=== PATIENT | female | born 2000 | race Caucasian/White ===

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

== ENCOUNTER 2023-04-25 15:23 | Emergency (ER) | payer MEDICAID ==
[2023-04-25 15:35] VITALS: TEMP 97; O2SAT 98
--- NOTE | 2023-04-25 15:36 | ERPHSYRPT ---
- History of Present Illness Time Seen by Provider: 04/25/23 15:36 Source: patient, family Exam Limitations: no limitations Physician History: This is a 22-year-old white female patient who is 8 weeks and has had a migraine headache for 2 days. She stated to me that she took both Tylenol and ibuprofen without benefit. She has not had any vomiting but feels a little nauseous. She has not had any diarrhea. She has no complaints of abdominal pain. She has had no abnormal vaginal discharge. She is concerned about being dehydrated. She did not have any trauma to her head. Timing/Duration: day(s) (2) Head Pain Location: global Severity of Pain-Max: mild (To moderate) Severity of Pain-Current: mild (To moderate) Recent Head Trauma: no recent headache/trauma Modifying Factors: Improves With: noise Associated Symptoms: nausea/vomiting (Nausea but no vomiting), No fever/chills, No loss of consciousness, No neck pain, No sensitive to light, No vision changes, No visual disturbance Previous symptoms: no prior history, no recent treatment Allergies/Adverse Reactions: No Known Drug Allergies Allergy (Verified 04/25/23 15:32) Home Medications: Pnv No.95/Ferrous Fum/Folic AC [ Caplet] 1 each PO DAILY 04/25/23 [History] Hx Tetanus, Diphtheria Vaccination/Date Given: Yes Hx Influenza Vaccination/Date Given: No Hx Pneumococcal Vaccination/Date Given: No Travel Risk - International Travel Have you traveled outside of the country in past 3 weeks: No - Coronavirus Screening Are you exhibiting any of the following symptoms?: No Close contact with a COVID-19 positive Pt in past 14-21 Days: No - Vaccine Status Have you recieved a Covid-19 vaccination: Yes [employer]: [employer] - Vaccination Dates Date of 2cond Vaccination (if applicable): feb 2021 - Review of Systems Constitutional: No Symptoms Eyes: No Symptoms Ears, Nose, & Throat: No Symptoms Respiratory: No Symptoms Cardiac: No Symptoms Abdominal/Gastrointestinal: No Symptoms Genitourinary Symptoms: No Symptoms Musculoskeletal: No Symptoms Skin: No Symptoms Neurological: Headache Psychological: No Symptoms Endocrine: No Symptoms Hematologic/Lymphatic: No Symptoms Immunological/Allergic: No Symptoms All Other Systems: Reviewed and Negative - Past Medical History Pertinent Past Medical History: No Neurological History: No Pertinent History ENT History: No Pertinent History Cardiac History: No Pertinent History Respiratory History: No Pertinent History Endocrine Medical History: No Pertinent History Musculoskeletal History: Other GI Medical History: No Pertinent History History: No Pertinent History Psycho-Social History: No Pertinent History Female Reproductive Disorders: No Pertinent History Other Medical History: Had outpatient surgery to remove some lead from foot after stepping on a pencil - Past Surgical History Past Surgical History: Yes Neuro Surgical History: No Pertinent History Cardiac: No Pertinent History Respiratory: No Pertinent History Gastrointestinal: Appendectomy Genitourinary: No Pertinent History Musculoskeletal: Other Female Surgical History: No Pertinent History - Social History Smoking Status: Never smoker Exposure to second hand smoke: Yes Drug Use: none Patient Lives Alone: No - Nursing Vital Signs Nursing Vital Signs: Initial Vital Signs Temperature 97.0 F 04/25/23 15:34 Pulse Rate 79 04/25/23 15:34 Respiratory Rate 16 04/25/23 15:34 Blood Pressure 117/59 04/25/23 15:34 O2 Sat by Pulse Oximetry 98 04/25/23 15:34 Pain Scale Pain Intensity 4 - Physical Exam General Appearance: no apparent distress, alert, anxiety Eye Exam: PERRL/EOMI, eyes nml inspection Ears, Nose, Throat Exam: normal ENT inspection, moist mucous membranes Neck Exam: normal inspection, non-tender, supple, full range of motion Respiratory Exam: normal breath sounds, lungs clear, airway intact, No chest tenderness, No respiratory distress Cardiovascular Exam: regular rate/rhythm, normal heart sounds, normal peripheral pulses Gastrointestinal/Abdominal Exam: soft, normal bowel sounds, No tenderness Back Exam: normal inspection, normal range of motion, No CVA tenderness, No vertebral tenderness Extremity Exam: normal inspection, normal range of motion, pelvis stable Mental Status Exam: alert, oriented x 3, cooperative hearing examiner Exam: normal hearing, normal speech, PERRL, tongue midline Coordination/Gait Exam: normal finger to nose, normal gait, normal cerebellar function Motor/Sensory Exam: no motor deficit, no sensory deficit Skin Exam: normal color, warm, dry Lymphatic Exam: No adenopathy SpO2 Interpretation: normal SpO2: 98 O2 Delivery: Room Air - Course Nursing assessment & vital signs reviewed: Yes Ordered Tests: Active Orders 24 hr Category Date Time Status IV Insertion STAT Care 04/25/23 15:52 Active Pulse Oximetry (ED) STAT Care 04/25/23 15:52 Active BMP Stat Lab 04/25/23 16:10 Completed CBC W DIFF Stat Lab 04/25/23 16:10 Completed CULTURE,URINE Stat Lab 04/25/23 16:04 Received UA W/RFX UR CULTURE Stat Lab 04/25/23 16:04 Completed Medication Summary Discontinued Medications Generic Name Dose Route Start Last Admin Trade Name Philippq PRN Reason Stop Dose Admin Diphenhydramine HCl 50 mg 04/25/23 15:52 04/25/23 16:09 Diphenhydramine Hcl 50 Mg/Ml Vial IV 04/25/23 15:53 50 mg STAT ONE Administration Diphenhydramine HCl Confirm 04/25/23 16:06 Diphenhydramine Hcl 50 Mg/Ml Vial Administered 04/25/23 16:07 Dose 50 mg .ROUTE .STK-MED ONE Sodium Chloride 500 mls @ 500 mls/hr 04/25/23 15:54 04/25/23 16:09 Sodium Chloride 0.9% 500 Ml IV 04/25/23 16:53 500 mls/hr .Q1H ONE Administration Sodium Chloride Confirm 04/25/23 16:06 Sodium Chloride 0.9% 500 Ml Administered 04/25/23 16:07 Dose 500 mls @ ud IV .STK-MED ONE Prochlorperazine Edisylate 5 mg 04/25/23 15:52 04/25/23 16:09 Prochlorperazine Edisylate 10 Mg/2 Ml Vial IV 04/25/23 15:53 10 mg STAT ONE Administration Prochlorperazine Edisylate Confirm 04/25/23 16:06 Prochlorperazine Edisylate 10 Mg/2 Ml Vial Administered 04/25/23 16:07 Dose 10 mg .ROUTE .STK-MED ONE Lab/Rad Data: Laboratory Result Diagrams 04/25/23 16:10 04/25/23 16:10 Laboratory Results 04/25/23 04/25/23 04/25/23 Range/Units 16:10 16:10 16:04 WBC 12.7 H (4.0-10.5) x10^3/uL RBC 4.30 (4.1-5.4) x10^6/uL Hgb 12.8 (12.0-16.0) g/dL Hct 37.7 (35-47) % MCV 87.7 (78-100) fL MCH 29.8 (26-32) pg MCHC 34.0 (32-36) g/dL RDW 11.9 (11.5-14.0) % Plt Count 293 (150-450) x10^3/uL MPV 9.4 (7.5-11.0) fL Gran % 69.8 H (36.0-66.0) % Immature Gran % (Auto) 0.3 (0.00-0.4) % Nucleat RBC Rel Count 0.0 (0.00-0.1) % Eos # (Auto) 0.10 (0-0.5) x10^3/uL Immature Gran # (Auto) 0.04 H (0.00-0.03) x10^3u/L Absolute Lymphs (auto) 2.99 (1.0-4.6) x10^3/uL Absolute Monos (auto) 0.64 (0.0-1.3) x10^3/uL Absolute Nucleated RBC 0.00 (0.00-0.01) x10^3u/L Lymphocytes % 23.5 L (24.0-44.0) % Monocytes % 5.0 (0.0-12.0) % Eosinophils % 0.8 (0.00-5.0) % Basophils % 0.6 (0.0-0.4) % Absolute Granulocytes 8.88 H (1.4-6.9) x10^3/uL Basophils # 0.07 (0-0.4) x10^3/uL Sodium 136 L (137-145) mmol/L Potassium 3.7 (3.5-5.1) mmol/L Chloride 103 (98-107) mmol/L Carbon Dioxide 20 L (22-30) mmol/L Anion Gap 16.2 H (5-15) MEQ/L BUN 9 (7-17) mg/dL Creatinine 0.65 (0.52-1.04) mg/dL Estimated GFR 129.2 ML/MIN Glucose 76 (74-106) mg/dL Calcium 8.9 (8.4-10.2) mg/dL Urine Color Yellow (Yellow) Urine Appearance Cloudy A (Clear) Urine pH 5.0 (4.6-8.0) Ur Specific [place] 1.025 (1.005-1.030) Urine Protein Negative (Negative) Urine Glucose (UA) Negative (Negative) mg/dL Urine Ketones 15 A (Negative) Urine Blood Negative (Negative) Urine Nitrite Negative (Negative) Urine Bilirubin Negative (Negative) Urine Urobilinogen 0.2 (0.2) mg/dL Ur Leukocyte Esterase Trace A (Negative) U Hyaline Cast (Auto) 3-5 A (0-2) /LPF Urine Microscopic RBC 0-2 (0-5) /HPF Urine Microscopic WBC 6-10 A (0-5) /HPF Ur Epithelial Cells Moderate A (None Seen) /HPF Urine Bacteria Few A (None Seen) /HPF Urine Culture Reflexed YES (NO) - Progress Progress: improved, re-examined Air Movement: good Progress Note: 04/25/23 16:38 This patient's medical issue is 1 of moderate complexity. Level complex in the work-up performed is based on review of the patient's past medical history, review of the patient's drug allergy list, review the patient's medication list, review of the history of present illness and physical findings on examination. This patient work-up includes placement of intravenous line, infusion of normal saline solution, infusion of intravenous prochlorperazine 2.5 mg and intravenous of Benadryl 50 mg. In addition we are checking a urinalysis, CBC and BMP. I reviewed the medications and there risks and side effects with the patient prior to giving them to her. We formulated a plan together. I also informed her not to use ibuprofen while . 04/25/23 16:40 Blood Culture(s) Obtained: No Counseled pt/family regarding: lab results, diagnosis, need for follow-up Medical Desision Making - Independent Historian Additional History obtained from: Spouse - Diagnostic Testing Diagnostic test were ordered, analyzed, and reviewed by me: Yes - Risk of complications The pt has a mod risk of morbidity or mortality based on: Need for prescription drug management - Departure Departure Disposition: Home Clinical Impression: UTI (urinary tract infection) during , Headache Condition: Stable Critical Care Time: No Referrals: CRUZ TILLMAN MD [Primary Care Provider] - Follow up/PCP as directed Additional Instructions: Avoid ibuprofen and other NSAIDs during . Use Tylenol and Benadryl for headache issues. Take your antibiotics as prescribed. Drink plenty of clear liquids. Follow-up with your primary care provider for further evaluation and management in the next 3 to 5 days. Prescriptions: Ondansetron ODT 4 MG [Zofran Odt 4 mg] 4 mg PO Q6H PRN PRN #10 tablet PRN Reason: Vomiting Cephalexin Mh 500 mg [Keflex 500 mg] 500 mg PO TID #21 cap
[2023-04-25] MEDS ORDERED: BENADRYL 50 MG/ML IV ONE (15:52)
[2023-04-25] MEDS ORDERED: Compazine 10 MG/2 ML IV ONE (15:52)
[2023-04-25] MEDS ORDERED: Sodium Chloride 0.9% 500 ML 500 ML IV ONE ×2 (15:54→16:06)
[2023-04-25] MEDS ORDERED: BENADRYL 50 MG/ML ONE (16:06)
[2023-04-25] MEDS ORDERED: Compazine 10 MG/2 ML ONE (16:06)
[2023-04-25 16:13] LABS: Absolute Neutrophil Ct (ANC) 8.88 x10^3/uL (1.4-6.9); BASOPHIL % 0.6 % (0.0-0.4); Basophil (Absolute #) 0.07 x10^3/uL (0-0.4); Eosinophil % 0.8 % (0.00-5.0); Hematocrit 37.7 % (35-47); Hemoglobin 12.8 g/dL (12.0-16.0); IMMATURE GRAN # 0.04 x10^3u/L (0.00-0.03); IMMATURE GRAN % 0.3 % (0.00-0.4); Lymphocyte (Absolute #) 2.99 x10^3/uL (1.0-4.6); Lymphocytes % 23.5 % (24.0-44.0); Mean Cell Volume 87.7 fL (78-100); Mean Corpuscular Hemoglobin 29.8 pg (26-32); Mean Platelet Volume 9.4 fL (7.5-11.0); Monocyte (Absolute #) 0.64 x10^3/uL (0.0-1.3); Neutrophil % 69.8 % (36.0-66.0); Platelet Count 293 x10^3/uL (150-450); Red Cell Distribution Width 11.9 % (11.5-14.0); White Blood Count 12.7 x10^3/uL (4.0-10.5)
[2023-04-25 16:19] LABS: Appearance Cloudy (Clear); Bacteria Few /HPF (None Seen); Bilirubin Negative (Negative); Blood Negative (Negative); Epithelial Cells Moderate /HPF (None Seen); Glucose, Urine Negative (Negative); Ketones 15 (Negative); Leukocyte Esterase Trace (Negative); Nitrite Negative (Negative); Protein,Urine Dip Negative (Negative); RBC 0-2 /HPF (0-5); Specific Gravity 1.025 (1.005-1.030); Urobilinogen 0.2 mg/dL (0.2)
[2023-04-25 16:28] LABS: ANION GAP 16.2 MEQ/L (5-15); Calcium 8.9 mg/dL (8.4-10.2); Creatinine 1 0.65 mg/dL (0.52-1.04); EST GLOMERULAR FILTRATION RATE 129.2 ML/MIN; Potassium 3.7 mmol/L (3.5-5.1)
[2023-04-25 16:33] LABS: ADD URINE CULTURE? YES (NO)
[2023-04-25] MEDS ORDERED: ROCEPHIN 1 Gm-D5w 50 ml Bag** 1 G/50 ML IVPB IV STA (16:54)
[2023-04-25 17:17] VITALS: BP 115/75; PULSE 98; RESP 24
[2023-04-25] MEDS ORDERED: ROCEPHIN 1 Gm-D5w 50 ml Bag** 1 G/50 ML IVPB IV ONE (17:18)
== END 2023-04-25 17:59 | disposition home or self-care (01) ==
LOC: ED 15:23
DX: O23.41 Unspecified infection of urinary tract in pregnancy, first trimester (principal); N39.0 Urinary tract infection, site not specified; Z3A.08 8 weeks gestation of pregnancy; R51.9 Headache, unspecified; R11.0 Nausea
CPT/HCPCS: 36000; 36415; 80048; 81001; 85025; 87086; 94760; 96365; 96374; 96375; 99284; J0696; J1200

== ENCOUNTER 2023-10-29 11:26 | Observation (INO) | payer OTHER ==
[2023-10-29 11:53] LABS: Appearance Clear (Clear); Bacteria Rare /HPF (None Seen); Bilirubin Negative (Negative); Blood Negative (Negative); Epithelial Cells Few /HPF (None Seen); Glucose, Urine Negative (Negative); Hyaline Casts NONE SEEN /LPF (0-2); Ketones Negative (Negative); Leukocyte Esterase Small (Negative); Nitrite Negative (Negative); Protein,Urine Dip Negative (Negative); RBC 0-2 /HPF (0-5); Urobilinogen 0.2 mg/dL (0.2)
[2023-10-29 11:55] LABS: ADD URINE CULTURE? YES (NO)
[2023-10-29] MEDS: Lactated Ringers 1,000 ML IV ONE ×2 (12:27→17:41)
[2023-10-29 13:10] LABS: Amphetamine,Urine NEGATIVE (NEGATIVE); Barbiturate,Urine NEGATIVE (NEGATIVE); Benzodiazepine,Urine NEGATIVE (NEGATIVE); Cocaine,Urine NEGATIVE (NEGATIVE); Methadone,Urine NEGATIVE (NEGATIVE); Opiate,Urine NEGATIVE (NEGATIVE); PCP,Urine NEGATIVE (NEGATIVE); THC,Urine NEGATIVE (NEGATIVE)
[2023-10-29] MEDS: Lactated Ringers 1,000 ML IV SCH (13:24)
[2023-10-29] MEDS: ROCEPHIN 1 GM / 100 ML NaCl 1 GM/100 ML IVPB IV SCH (13:24)
[2023-10-29] MEDS: BRETHINE 1 MG/ML SQ ONE ×2 (13:31→15:05)
[2023-10-29 14:03] VITALS: RESP 18; TEMP 97.9
[2023-10-29 18:27] VITALS: BP 116/58; PULSE 99; O2SAT 98
== END 2023-10-29 19:30 | disposition home or self-care (01) ==
LOC: OB 11:26
PROVIDERS: ADMIT Family Medicine; ATTEND Family Medicine
DX: Z34.83 Encounter for supervision of other normal pregnancy, third trimester (principal); Z3A.35 35 weeks gestation of pregnancy
CPT/HCPCS: 80307; 81001; 87086; G0378; G0379; J0696

== ENCOUNTER 2023-11-29 16:09 | Inpatient (IN) | payer OTHER ==
[2023-11-29] MEDS ORDERED: Lactated Ringers 1,000 ML IV ONE (18:32)
[2023-11-29] MEDS ORDERED: Ephedrine Sulfate 50 MG/ML IV PRN (18:49)
[2023-11-29 18:51] LABS: Absolute Neutrophil Ct (ANC) 9.28 x10^3/uL (1.56-6.13); BASOPHIL % 0.3 % (0.1-1.2); Basophil (Absolute #) 0.04 x10^3/uL (0.01-0.08); Eosinophil % 0.5 % (0.7-5.8); Eosinophil (Absolute #) 0.07 x10^3/uL (0.04-0.36); Hemoglobin 11.1 g/dL (11.2-15.7); IMMATURE GRAN # 0.05 x10^3u/L (0.001-0.031); IMMATURE GRAN % 0.4 % (0.001-0.429); Lymphocyte (Absolute #) 2.83 x10^3/uL (1.18-3.74); Mean Cell Volume 82.5 fL (79.4-94.8); Mean Corpuscular Hemoglobin 26.9 pg (25.6-32.2); Mean Corpuscular Hgb Concent. 32.6 g/dL (32.2-35.5); Mean Platelet Volume 10.2 fL (9.4-12.3); Monocyte (Absolute #) 0.58 x10^3/uL (0.24-0.86); Monocytes % 4.5 % (4.7-12.5); Neutrophil % 72.3 % (34.0-71.1); Platelet Count 252 x10^3/uL (182-369); Red Blood Count 4.12 x10^6/uL (3.93-5.22); Red Cell Distribution Width 13.7 % (11.7-14.4); White Blood Count 12.9 x10^3/uL (3.98-10.04)
[2023-11-29 19:09] LABS: Amphetamine,Urine NEGATIVE (NEGATIVE); Barbiturate,Urine NEGATIVE (NEGATIVE); Benzodiazepine,Urine NEGATIVE (NEGATIVE); Cocaine,Urine NEGATIVE (NEGATIVE); Methadone,Urine NEGATIVE (NEGATIVE); Opiate,Urine NEGATIVE (NEGATIVE); PCP,Urine NEGATIVE (NEGATIVE); THC,Urine NEGATIVE (NEGATIVE)
[2023-11-29 19:12] LABS: ADD URINE CULTURE? NO (NO); Appearance Clear (Clear); Bacteria None Seen /HPF (None Seen); Bilirubin Negative (Negative); Blood Trace (Negative); Epithelial Cells Rare /HPF (None Seen); Glucose, Urine Negative (Negative); Hyaline Casts NONE SEEN /LPF (0-2); Ketones Negative (Negative); Leukocyte Esterase Negative (Negative); Nitrite Negative (Negative); Protein,Urine Dip Negative (Negative); RBC 0-2 /HPF (0-5); Urobilinogen 0.2 mg/dL (0.2)
[2023-11-29] MEDS: Lactated Ringers 1,000 ML IV ONE (19:17)
[2023-11-29 19:32] LABS: ABO TYPING A; Antibody Screen NEGATIVE (NEGATIVE); RH TYPING POSITIVE
[2023-11-29] MEDS: FENTANYL 2 MCG-BUPIV 0.125%-NS 250 ML Epidur 250 ML EPIDURAL SCH (20:03)
[2023-11-29] MEDS: Zofran 4 MG/2 ML VIAL IV PRN (21:45)
[2023-11-29] MEDS: TYLENOL EXTRA STRENGTH 500 MG PO PRN (21:45)
[2023-11-29] MEDS: Tums EX 750 MG PO PRN (21:54)
[2023-11-29] MEDS: Lactated Ringers 1,000 ML IV SCH (21:54)
[2023-11-30] MEDS: PITOCIN 30 UNITS/ LR 500 ML 30 UNITS/500 ML PLAST..BAG IV SCH (02:52)
[2023-11-30] MEDS: TUCKS TP PRN (04:30)
[2023-11-30] MEDS: Dermoplast Spray TP PRN (04:30)
[2023-11-30] MEDS: LANSINOH 40 GM TOP PRN (04:30)
[2023-11-30] MEDS: MOTRIN 400 MG PO PRN (04:31)
[2023-11-30] MEDS: FERREX 150 PO SCH (11:03)
[2023-11-30] MEDS: Docusate Sodium 100 MG PO SCH (11:03)
[2023-11-30] MEDS: Adacel Vial IM ONE (11:07)
[2023-11-30] MEDS: TYLENOL EXTRA STRENGTH 500 MG PO PRN (13:49)
[2023-11-30 16:01] LABS: Absolute Neutrophil Ct (ANC) 11.66 x10^3/uL (1.56-6.13); BASOPHIL % 0.3 % (0.1-1.2); Basophil (Absolute #) 0.04 x10^3/uL (0.01-0.08); Eosinophil % 0.3 % (0.7-5.8); Eosinophil (Absolute #) 0.05 x10^3/uL (0.04-0.36); Hematocrit 30.2 % (34.1-44.9); Hemoglobin 9.6 g/dL (11.2-15.7); IMMATURE GRAN # 0.05 x10^3u/L (0.001-0.031); IMMATURE GRAN % 0.3 % (0.001-0.429); Lymphocyte (Absolute #) 2.32 x10^3/uL (1.18-3.74); Lymphocytes % 15.3 % (19.3-51.7); Mean Corpuscular Hemoglobin 26.4 pg (25.6-32.2); Mean Corpuscular Hgb Concent. 31.8 g/dL (32.2-35.5); Mean Platelet Volume 10.3 fL (9.4-12.3); Monocyte (Absolute #) 1.04 x10^3/uL (0.24-0.86); Monocytes % 6.9 % (4.7-12.5); Neutrophil % 76.9 % (34.0-71.1); Platelet Count 216 x10^3/uL (182-369); Red Blood Count 3.64 x10^6/uL (3.93-5.22); Red Cell Distribution Width 13.9 % (11.7-14.4); White Blood Count 15.2 x10^3/uL (3.98-10.04)
[2023-11-30] MEDS: NORCO 5/325 MG PO PRN (18:30)
[2023-12-01 04:58] LABS: Absolute Neutrophil Ct (ANC) 7.46 x10^3/uL (1.56-6.13); BASOPHIL % 0.5 % (0.1-1.2); Basophil (Absolute #) 0.06 x10^3/uL (0.01-0.08); Eosinophil % 0.7 % (0.7-5.8); Eosinophil (Absolute #) 0.08 x10^3/uL (0.04-0.36); Hematocrit 30.1 % (34.1-44.9); Hemoglobin 9.9 g/dL (11.2-15.7); IMMATURE GRAN # 0.07 x10^3u/L (0.001-0.031); IMMATURE GRAN % 0.6 % (0.001-0.429); Lymphocyte (Absolute #) 3.16 x10^3/uL (1.18-3.74); Lymphocytes % 27.6 % (19.3-51.7); Mean Cell Volume 83.4 fL (79.4-94.8); Mean Corpuscular Hemoglobin 27.4 pg (25.6-32.2); Mean Corpuscular Hgb Concent. 32.9 g/dL (32.2-35.5); Monocyte (Absolute #) 0.64 x10^3/uL (0.24-0.86); Monocytes % 5.6 % (4.7-12.5); Platelet Count 206 x10^3/uL (182-369); Red Blood Count 3.61 x10^6/uL (3.93-5.22); Red Cell Distribution Width 14.1 % (11.7-14.4); White Blood Count 11.5 x10^3/uL (3.98-10.04)
[2023-12-01 20:33] VITALS: O2SAT 98
--- NOTE | 2023-12-02 09:18 | PCM.DS ---
Discharge Summary Date of Admission: 11/29/23 16:09 Admitting Physician: CRUZ TILLMAN Consults: Consults on Case 11/29/23 18:50 Notify Anesthesia Provider PRN Primary Care Provider: CRUZ TILLMAN Allergies Allergies No Known Drug Allergies Allergy (Verified 11/29/23 20:45) Hospital Summary - Hospital Course Hospital Course: patient arrived in spontaneous labor and had an uncomplicated vaginal delivery at term. her , no complications or concerns - Vitals & Intake/Output Vital Signs: Vital Signs Temperature 98.4 F 12/01/23 20:28 Pulse Rate 64 12/01/23 20:28 Respiratory Rate 15 12/01/23 20:28 Blood Pressure 111/66 12/01/23 20:28 O2 Sat by Pulse Oximetry 98 12/01/23 20:28 Intake & Output: Intake & Output 11/29/23 11/30/23 12/01/23 12/02/23 11:59 11:59 11:59 11:59 Intake Total 3900 500 1330 Output Total 1400 Balance 2500 500 1330 Weight 76.204 kg - Lab Result Diagrams: 12/01/23 04:53 - Procedures and Test Procedures and Tests throughout Hospitalization: Therapy Orders & Screens 11/30/23 03:55 Standby ROUTINE Comment: Discharge Exam General Appearance: no apparent distress Neurologic Exam: alert, oriented x 3 Respiratory Exam: normal breath sounds, lungs clear, No respiratory distress Cardiovascular Exam: regular rate/rhythm, normal heart sounds Gastrointestinal/Abdomen Exam: soft, other (fundus firm), No tenderness, No mass Extremity Exam: normal inspection, normal range of motion Skin Exam: normal color, warm, dry Final Diagnosis/Problem List - Final Discharge Diagnosis/Problem (1) Vaginal delivery Current Visit: No Status: Acute Code(s): O80 - ENCOUNTER FOR FULL-TERM UNCOMPLICATED DELIVERY (2) () Current Visit: Yes Status: Acute Code(s): Z78.9 - OTHER SPECIFIED HEALTH STATUS - Discharge Disposition: Home, Self-Care Condition: Stable Prescriptions: Continue Pnv No.95/Ferrous Fum/Folic AC [ Caplet] 1 each PO DAILY Follow up with: CRUZ TILLMAN MD [Primary Care Provider] - 6 weeks
[2023-12-02 10:24] VITALS: BP 118/64; PULSE 58; RESP 16; TEMP 98.5
== END 2023-12-02 10:55 | disposition home or self-care (01) | DRG 807 ==
LOC: OB 16:09 → OBSVTOIN 16:09
PROVIDERS: ADMIT Family Medicine; ATTEND Family Medicine
PROC: 10E0XZZ Delivery of Products of Conception, External Approach (ICD-10-PCS; principal; 2023-11-30)
DX: O80 Encounter for full-term uncomplicated delivery (principal); Z37.0 Single live birth; Z3A.39 39 weeks gestation of pregnancy
CPT/HCPCS: 36415; 80307; 81001; 85025; 86850; 86900; 86901; 90715; 94799; 96372; J2405; J2590; A9270-GY

== ENCOUNTER 2024-03-08 08:20 | Day surgery (SDC) | payer MEDICAID ==
--- NOTE | 2024-03-08 08:08 | HP ---
HISTORY AND PHYSICAL HISTORY OF PRESENT ILLNESS: The patient already has 2 biologic children and desires a tubal. Denies any chronic illness. ALLERGIES: No known drug allergies. PAST SURGICAL HISTORY: Had ankle surgery and appendectomy in the past. SOCIAL HISTORY: No smoking or alcohol abuse. FAMILY HISTORY: Diabetes mellitus. REVIEW OF SYSTEMS: Twelve systems reviewed. Basically the patient is pretty healthy. No chest pain or palpitations. Other systems negative or noncontributory as above and per preadmission questionnaire. PHYSICAL EXAMINATION: GENERAL: Height 5 feet. BMI 29. No acute distress. HEENT: Sclerae nonicteric. NECK: No JVD. CHEST: Clear to auscultation. CARDIOVASCULAR: Regular rate and rhythm. SKIN: Dry. EXTREMITIES: No cyanosis or edema. NEUROLOGIC: Alert and oriented, moving extremities symmetrically. PSYCHIATRIC: Appropriate mood and affect. IMPRESSION: Undesired fertility, desires a tubal. She was discussed option of laparoscopic bilateral tubal cauterization, possible open. Risks were explained in detail to include bleeding, infection, risk of trocar injury, hernia, risk of bowel or bladder, blood vessel injury or ureter injury possibly requiring other procedures, risk of abscess, 4% risk of tubal failure rate and viable tube to grow together to each other (as well as risk of anesthesia, DVT, PE, pneumonia but not limited to), risk of aches and pains. The patient understands and agreed to planned procedure. Will proceed with laparoscopic bilateral tubal cauterization, possible outpatient as an outpatient.
[2024-03-08 08:35] LABS: HCG URINE TEST NEGATIVE (NEGATIVE)
[2024-03-08] MEDS ORDERED: Lactated Ringers 1,000 ML IV ONE ×2 (08:35→11:43)
[2024-03-08] MEDS: CEFAZOLIN 2 GM/100 ML NaCl 2 GM/100 ML IVPB IV SCH (09:08)
[2024-03-08] MEDS: Lactated Ringers 1,000 ML IV SCH (09:08)
[2024-03-08] MEDS ORDERED: Sensorcaine 0.25% 10 ML ONE (09:33)
[2024-03-08] MEDS ORDERED: DIPRIVAN 200 MG/20 ML IV ONE (10:35)
[2024-03-08] MEDS ORDERED: Decadron 4 MG INJ ONE (10:37)
[2024-03-08] MEDS ORDERED: ROCURONIUM BROMIDE IV ONE (10:37)
[2024-03-08] MEDS ORDERED: Zofran 4 MG/2 ML VIAL ONE (10:37)
[2024-03-08] MEDS ORDERED: SUBLIMAZE 100 MCG/2 ML ONE ×2 (10:58→12:40)
[2024-03-08] MEDS ORDERED: TORAdol 30 mg Injection ONE ×2 (11:42→12:43)
[2024-03-08] MEDS ORDERED: BRIDION 200MG/2ML IV ONE (11:42)
[2024-03-08 13:11] VITALS: RESP 16; TEMP 97.9; O2SAT 97
[2024-03-08 13:32] VITALS: BP 109/65; PULSE 80
[2024-03-08] MEDS: NORCO 5/325 MG PO PRN (13:34)
--- NOTE | 2024-03-09 20:57 | OP ---
SURGERY DATE/TIME: 03/08/2024 [id number] PREOPERATIVE DIAGNOSIS: Undesired fertility, desire for bilateral tubal cauterization. POSTOPERATIVE DIAGNOSIS: Undesired fertility, desire for bilateral tubal cauterization. PROCEDURE: Laparoscopic bilateral tubal cauterization. SURGEON: Alfonzo De La Vega MD ANESTHESIA: General. ESTIMATED BLOOD LOSS: Minimal. INDICATIONS: As above. Consent obtained. DESCRIPTION OF PROCEDURE AND FINDINGS: Patient was taken to the operating room. MAC anesthesia induced after official time-out, no disagreement for planned procedure. Transverse incision made in supraumbilical area. Fascia grasped and pulled up. Veress needle inserted. Tested with saline. Pneumoperitoneum accomplished insufflating to an open pressure of 0 to 15. A 5 mm bladeless port and camera inserted without difficulty followed by left lower 5 mm port and a right lower quadrant 5 mm port. There was an adhesion of a band up to the lower abdomen midline. This was taken down with LigaSure device. There were a few adhesions over to the right colon laterally that did not feel warranted any intervention. At this point, she did have a cyst on her left ovary. At this point, elevated the tube upward with the extra grasper. Initially, planned to use the Kleppinger bipolar system. However, this was nonfunctional and, therefore, used the LigaSure device, cauterizing, sealing the tube for 3.5 to 4 cm length bilaterally. Picture was taken. Patient tolerated the procedure well. This had all been done elevating the tube well away from the pelvic sidewall and well away from the viscera and the uterus. Again, the Kleppinger system was not working and, therefore, used the vessel sealer LigaSure device to cauterized seal this tube over a 3.5 to 4 cm segment bilaterally. Good hemostasis noted. At this point, pneumoperitoneum decompressed. Skin incisions closed with 4-0 Vicryl. Marcaine 0.25% local injected along each skin incision and fascial defect. Patient tolerated the procedure well. There were no immediate complications. Findings were discussed with family out in the waiting area.
== END 2024-03-08 13:50 | disposition home or self-care (01) ==
LOC: SDC 08:20
PROVIDERS: ATTEND Surgery
DX: Z30.2 Encounter for sterilization (principal); N83.202 Unspecified ovarian cyst, left side; K66.0 Peritoneal adhesions (postprocedural) (postinfection)
CPT/HCPCS: 81025; J0690; J1100; J1885; J2405; J2704; J3010; L0625; A9270-GY